=== PATIENT | female | born 1975 | race American Indian/Alaskan Native ===

== ENCOUNTER 2018-05-13 08:09 | Outpatient (CLI) | payer OTHER ==
--- NOTE | 2018-05-13 10:44 | Fluoroscopy Report ---
HYSTEROSALPINGOGRAM: History: Infertility, intramural leiomyoma of uterus. Informed consent was obtained. Standard sterile prep and drape was employed. The catheter tip was subsequently placed within the uterine lumen via cervix. The small balloon on the tip of the catheter was inflated. Retrograde injection opacifies normal appearing uterine lumen. 40 fluoroscopic images were saved. There is prompt filling of the fallopian tubes with prompt bilateral spillage. The uterine lumen demonstrates no evidence for extrinsic compression or intrinsic mass. IMPRESSION: Normal hysterosalpingogram.
== END 2018-05-13 08:10 | disposition home or self-care (01) ==
LOC: FLUORO 08:09
PROVIDERS: ATTEND Obstetrics & Gynecology
DX: D25.1 Intramural leiomyoma of uterus (principal); Z88.0 Allergy status to penicillin; Z88.1 Allergy status to other antibiotic agents
CPT/HCPCS: 58340; 74740; Q9967

== ENCOUNTER 2019-05-06 05:42 | Inpatient (IN) | payer MEDICAID ==
[2019-05-06] MEDS ORDERED: METOCLOPRAMIDE 10 MG/2 ML INJ IV ONE ×2 (06:07→09:00)
[2019-05-06] MEDS ORDERED: FAMOTIDINE 20 MG/2 ML INJ IV ONE ×3 (06:07→09:00)
[2019-05-06] MEDS ORDERED: BICITRA ORAL LIQD 30ML PO ONE ×2 (06:07→09:00)
[2019-05-06 06:44] LABS: Basophils % (Auto) 0.5 % (0.0-1.8); Eosinophils # (Auto) 0.1 K/mm3 (0.0-0.4); Eosinophils % (Auto) 1.5 % (0.0-4.3); Hematocrit 40.5 % (30.3-42.9); Lymphocytes # (Auto) 2.1 K/mm3 (1.2-5.4); Lymphocytes % (Auto) 21.3 % (13.4-35.0); Mean Corpuscular HGB Conc 35 % (30-34); Mean Corpuscular Volume 96 fl (79-97); Monocytes # (Auto) 0.9 K/mm3 (0.0-0.8); Monocytes % (Auto) 9.1 % (0.0-7.3); Platelet Count 290 K/mm3 (140-440); Red Cell Distribution Width 13.4 % (13.2-15.2)
--- NOTE | 2019-05-06 06:50 | Ultrasound Report ---
LIMITED TRANSABDOMINAL OB PELVIC ULTRASOUND INDICATION / CLINICAL INFORMATION: presentation. COMPARISON: None available. FINDINGS: There is a single intrauterine in a breech presentation. The heart rate is 148 bpm. Signer Name: Cody Salazar MD Signed: 05/06/2019 6:46 AM Workstation Name: [id number]
[2019-05-06] MEDS: LACTATED RINGERS 1,000 ML IV SCH ×2 (06:52→08:18)
[2019-05-06] MEDS ORDERED: NALOXONE 0.4 MG/1 ML INJ IV PRN ×2 (06:53→10:14)
[2019-05-06] MEDS ORDERED: PROMETHAZINE 25 MG TAB PO PRN (06:53)
[2019-05-06] MEDS ORDERED: ONDANSETRON 4 MG/2 ML INJ IV PRN (06:53)
[2019-05-06] MEDS ORDERED: PROMETHAZINE 25 MG RECT SUPP PR PRN (06:53)
[2019-05-06] MEDS ORDERED: HYDROmorphone 1 MG/1 ML INJ IV PRN ×2 (06:53)
--- NOTE | 2019-05-06 06:53 | Anesthesia Day of Surgery ---
Anesthesia Day of Surgery - Day of Surgery Patient Examined: Yes Patient H&P Reviewed: Yes Patient is NPO: Yes
--- NOTE | 2019-05-06 06:53 | Anesthesia Consultation ---
Anesthesia Consult and Med Hx Date of service: 05/06/19 - Airway Anesthetic Teeth Evaluation: Good ROM Head & Neck: Adequate Mental/Hyoid Distance: Adequate Mallampati Class: Class II Intubation Access Assessment: Good - Pulmonary Exam CTA: Yes - Cardiac Exam Cardiac Exam: RRR - Pre-Operative Health Status ASA Pre-Surgery Classification: ASA2 Proposed Anesthetic Plan: Spinal - Pulmonary Hx Asthma: No - Cardiovascular System Hx Hypertension: Yes (CHTN) - Central Nervous System Hx Seizures: No Hx Psychiatric Problems: No - Endocrine Hx Renal Disease: No Hx Hypothyroidism: No Hx Hyperthyroidism: No - Hematic Hx Anemia: No Hx Sickle Cell Disease: No - Other Systems Hx Alcohol Use: No
[2019-05-06] MEDS ORDERED: OXYTOCIN 20 UNIT/1000ML DRIP 20 UNITS/1,000 ML BAG IV SCH ×2 (07:00→11:00)
--- NOTE | 2019-05-06 07:01 | History and Physical Report ---
History of Present Illness Date of examination: 05/06/19 Date of admission: 05/06/19 05:42 Chief complaint: C Section History of present illness: Pt is a 43yo BF EDC 05/21/19; EGA 37 6/7 weeks presents for Primary C Section due to Breech presentation. She received care at [facility] since 8 weeks and co-managed by [facility] for AMA, uterine fibroids, Chronic hypertension and persistent Breech presentation. records are available and GBS is Negative. Past History Past Medical History: hypertension Past Surgical History: no surgical history [employer] History: fibroids Family/Genetic History: diabetes, hypertension, cancer Social history: no significant social history, single - Obstetrical History Expected Date of Delivery: 05/21/19 Actual Gestation: 37 Week(s) 6 Day(s) : 1 Medications and Allergies Allergies Allergy/AdvReac Type Severity Reaction Status Date / Time amoxicillin AdvReac Hives Unverified 05/13/18 08:18 erythromycin base AdvReac Nausea Unverified 05/13/18 08:19 Home Medications Medication Instructions Recorded Confirmed Last Taken Type Aspirin [Adult Aspirin] 1 tab PO DAILY 05/06/19 05/06/19 05/06/19 History hydroCHLOROthiazide [HCTZ] 1 tab PO DAILY 05/06/19 05/06/19 05/06/19 History Active Meds: Active Medications Oxytocin/Sodium Chloride (Pitocin/Ns 20 Unit/1000ml Drip) 20 units in 1,000 mls @ 0 mls/hr IV TITR LATOYA Lactated Ringer's (Lactated Ringers) 1,000 mls @ 2,250 mls/hr IV PREOP LATOYA Stop: 05/07/19 07:27 Last Admin: 05/06/19 06:52 Dose: 2,250 mls/hr Documented by: Naloxone HCl (Naloxone) 0.2 mg IV Q2MIN PRN PRN Reason: Res Rate </= 8 or 02 SAT < 92% Ondansetron HCl (Zofran) 4 mg IV Q8H PRN PRN Reason: Nausea And Vomiting Promethazine HCl (Phenergan) 25 mg PO Q6H PRN PRN Reason: Nausea And Vomiting Promethazine HCl (Phenergan) 25 mg NM Q6H PRN PRN Reason: Nausea And Vomiting Sodium Chloride (Sodium Chloride Flush Syringe 10 Ml) 10 ml IV PRN NR Review of Systems All systems: negative - Vital Signs Vital signs: Vital Signs Pulse BP 75 117/70 05/06/19 06:07 05/06/19 06:07 Temp Pulse Resp BP Pulse Ox 75 117/70 05/06/19 06:07 05/06/19 06:07 - Physical Exam Breasts: Positive: deferred Cardiovascular: Regular rate Lungs: Positive: Clear to auscultation Abdomen: Positive: normal appearance Genitourinary (Female): Positive: normal external genitalia Vagina: Positive: normal moisture Uterus: Positive: enlarged Extremities: Positive: normal - Obstetrical FHR: category 1 Uterine Contraction Monitor Mode: External Results Result Diagrams: 05/06/19 06:20 Abnormal lab results 05/06/19 Range/Units 06:20 MCH 33 H (28-32) pg MCHC 35 H (30-34) % [place] % (Auto) 9.1 H (0.0-7.3) % [place] # 0.9 H (0.0-0.8) K/mm3 All other labs normal. Assessment and Plan - Patient Problems (1) 38 weeks gestation of Onset Date: 05/06/19 Current Visit: Yes Status: Acute Plan to address problem: A: IUP @ 37 6/7 weeks Breech presentation Uterine fibroids Chronic hypertension P: Admit to L&D for Primary C Section (2) Uterine fibroids affecting in third trimester Onset Date: 05/06/19 Current Visit: Yes Status: Acute (3) Breech presentation Onset Date: 05/06/19 Current Visit: Yes Status: Acute Qualifiers: Fetus number: single or unspecified fetus Qualified Code(s): O32.1XX0 - Maternal care for breech presentation, not applicable or unspecified
[2019-05-06] MEDS ORDERED: METOCLOPRAMIDE 10 MG/2 ML INJ ONE (08:39)
[2019-05-06] MEDS ORDERED: GENTAMICIN/NS 80 MG/100 ML 100 ML IV ONE (09:00)
[2019-05-06] MEDS ORDERED: SODIUM CHLORIDE 0.9% IRR 1,500 ML BOTTLE IR ONE (09:10)
[2019-05-06] MEDS ORDERED: WATER FOR IRRIG STERILE 1,500 ML BOTTLE IR ONE (09:10)
[2019-05-06] MEDS ORDERED: DEXMEDETOMIDINE 200 MCG/2 ML VIAL IV ONE (09:56)
[2019-05-06] MEDS ORDERED: ONDANSETRON 4 MG/2 ML INJ ONE (09:56)
[2019-05-06] MEDS ORDERED: KETOROLAC 30 MG/1 ML INJ ONE (09:56)
--- NOTE | 2019-05-06 10:11 | Operative Report ---
Operative Report Operative Report: Date of procedure: 05/06/2019 Pre-operative diagnosis: 1. Intrauterine at 37 6/7 weeks 2. Breech presentation 3. Uterine fibroids 4. Chronic hypertension Post-operative diagnosis: Same Procedure name(s): Primary low transverse section Surgeon: Luis Carlos Lyon MD City Director: None Anesthesia: Spinal anesthesia by Frank Schulz CRNA EBL: 500 mL's Findings: A 2558 gm female Apgars 8 at 1 minute 9 at 5 minutes. Ubaldo breech presentation. Nuchal cord 1. Uterus with small fibroids. Normal tubes and ovaries bilaterally. Procedure: After the patient was prepped and draped in usual sterile fashion, and after satisfactory level of spinal anesthesia was obtained, the skin knife was used to make a transverse skin incision. The incision was incised down to layer of the fascia, which was nicked in the midline and extended laterally using the Bovie cautery. The rectus muscles were dissected off the rectus fascia both superiorly and inferiorly. The rectus bellies in the midline, and the peritoneum was entered under direct visualization. The pe ritoneal incision was extended superiorly and inferiorly. A bladder flap was created and the bladder blade was then placed. The uterus was scored in a curvilinear linear fashion, entered in the midline revealing clear amniotic fluid. The 's Ubaldo breech was delivered onto the surgical field, followed by the rest of the 's body, nuchal cord 1 easily reduced and the oropharynx and nasopharynx were bulb suctioned. The cord was doubly clamped and cut and the infant was handed to the awaiting respiratory team. Cord blood was then obtained. The placenta was manually removed from the uterus, and the uterus removed from its normal anatomical position. After gentle uterine lavage, the incision was inspected and found to be without extensions. It was then closed in 2 layers using 0 Vicryl suture in a running interlocking fashion, the second layer imbricating the first. After good hemostasis was achieved, copious amounts or irrigation was performed, and the gutters were suctioned free of blood and blood clots. The uterus, which had small fibroids was then returned to its normal anatomical position, and the peritoneum was re- approximated using 3-0 Vicryl suture in a running interlocking fashion, and then the rectus muscles were re-approximated using 3-0 Vicryl suture in a [id number] configuration. The fascia was then re-approximated using 0 Vicryl suture in running interlocking fashion. The subcutaneous layer was made hemostatic using Bovie cautery, and the skin edges re-approximated using 4-0 Vicryl suture in a sub-cuticular fashion. Patient tolerated the procedure well was transported to recovery in stable condition.
[2019-05-06] MEDS ORDERED: HYDROcodone/ACETAMINOPHEN 5-325 MG TAB PO PRN (10:14)
[2019-05-06] MEDS ORDERED: SENNOSIDES 8.6 MG TAB PO PRN (10:14)
[2019-05-06] MEDS ORDERED: ACETAMINOPHEN 325 MG TAB PO PRN (10:14)
[2019-05-06] MEDS ORDERED: LANOLIN/ZINC/DIMETHICONE (LANSINOH) 7 GM TP PRN (10:14)
[2019-05-06] MEDS ORDERED: MORPHINE 4 MG/1 ML INJ IV PRN (10:14)
[2019-05-06] MEDS ORDERED: oxyCODONE /ACETAMINOPHEN 5-325MG TAB PO PRN (10:14)
[2019-05-06] MEDS ORDERED: WITCH HAZEL/ GLYCERIN PAD TP PRN (10:14)
[2019-05-06] MEDS ORDERED: MAGNESIUM HYDROXIDE (MOM) ORAL LIQD UDC PO PRN (10:14)
--- NOTE | 2019-05-06 11:21 | Post Anesthesia Evaluation ---
- Post Anesthesia Evaluation Patient Participated: Yes Airway Patent: Yes Stable Respiratory Function: Yes Nausea/Vomiting: No Temp > 96.8F: Yes Pain Manageable: Yes Adequeate Hydration: Yes Anesthesia Complications: No Block Receding Appropriately: Yes Patient on Ventilator: No
[2019-05-06] MEDS ORDERED: TETANUS,DIPH,PERTUSS(ACELL) VACCINE 0.5 ML SYRINGE IM ONE (11:30)
[2019-05-06] MEDS: D5W/LACTATED RINGERS 1,000 ML IV SCH (12:24)
[2019-05-06] MEDS: KETOROLAC 30 MG/1 ML INJ IV PRN ×2 (15:55→23:46)
[2019-05-06] MEDS: CLINDAMYCIN 600 MG/50 mL 600 MG/50 ML BAG IV SCH (17:05)
[2019-05-06 23:38] LABS: Hematocrit 34.8 % (30.3-42.9); Hemoglobin 11.9 gm/dl (10.1-14.3)
[2019-05-06] MEDS: SIMETHICONE 80 MG CHEW TAB PO PRN (23:46)
[2019-05-07] MEDS: D5W/LACTATED RINGERS 1,000 ML IV SCH (02:08)
[2019-05-07] MEDS: CLINDAMYCIN 600 MG/50 mL 600 MG/50 ML BAG IV SCH (02:13)
[2019-05-07] MEDS: SIMETHICONE 80 MG CHEW TAB PO PRN (10:12)
[2019-05-07] MEDS: FERROUS SULFATE 325 MG TAB PO SCH (10:12)
[2019-05-07] MEDS: PRENATAL VIT27-FE FUMARATE-FOLIC ACID VIT TAB PO SCH (10:12)
[2019-05-07] MEDS ORDERED: MEASLES, MUMPS & RUBELLA 12,500 UNIT/0.5 ML VACCINE SUB-Q ONE (10:16)
[2019-05-07] MEDS: IBUPROFEN 800 MG TAB PO PRN ×3 (10:19→22:51)
--- NOTE | 2019-05-07 11:34 | Progress Note ---
Assessment and Plan - Patient Problems (1) 38 weeks gestation of Onset Date: 05/06/19 Current Visit: Yes Status: Resolved (2) Uterine fibroids affecting in third trimester Onset Date: 05/06/19 Current Visit: Yes Status: Chronic (3) Breech presentation Onset Date: 05/06/19 Current Visit: Yes Status: Resolved Qualifiers: Fetus number: single or unspecified fetus Qualified Code(s): O32.1XX0 - Maternal care for breech presentation, not applicable or unspecified (4) Status post Onset Date: 05/07/19 Current Visit: Yes Status: Resolved Plan to address problem: A: S/P Primary C Section - POD #1 Doing well Asymptomatic anemia - stable Chronic hypertension - stable P: Continue RPOC Anticipate discharge in 24-48hrs Subjective - Subjective Date of service: 05/07/19 Principal diagnosis: s/p Primary C Section - POD #1 Interval history: Pt is feeling well without complaints. Bleeding improved. She is tolerating a reg diet without nausea or vomiting, ambulating and voiding without difficulty. Patient reports: appetite normal, voiding normally, pain well controlled, flatus, ambulating normally, no dizzy ambulation [place]: doing well, nursing well, bottle feeding Objective - Vital Signs Latest vital signs: Vital Signs Temp Pulse Resp BP BP Pulse Ox 05/07/19 07:41 98.8 F 73 20 111/73 98 05/07/19 04:35 98.3 F 82 20 111/62 94 05/07/19 01:16 98.6 F 72 20 116/70 99 05/06/19 21:11 98.2 F 71 20 116/68 98 05/06/19 15:54 98.4 F 73 18 114/61 96 05/06/19 11:40 97.6 F 79 20 101/45 Intake and Output 05/06/19 05/07/19 05/07/19 22:59 06:59 14:59 Intake Total 1650 480 220 Output Total 1050 1800 300 Balance 600 -1320 -80 Intake: IV 1050 CLEOCIN 600 MG/50 mL 600 50 mg In 50 ml @ 100 mls/hr IV Q8H LATOYA Rx#:[id number] D5lr 1,000 ml @ 125 mls/ 1000 hr IV DIRECT LATOYA Rx#: [id number] Oral 240 480 220 Intake, Free Water 360 Output: Urine 1050 1800 300 Indwelling Catheter 1050 1400 Void 400 300 Other: Total, Intake Amount 240 240 220 Total, Output Amount 1050 400 300 # Voids Void 1 - Exam Breasts: Present: deferred Abdomen: Present: normal appearance, soft Uterus: Present: normal, firm, fundal height at umbilicus Extremities: Present: normal Incision: Present: normal, dry, intact, dressed - Labs Labs: Laboratory Tests 05/06/19 05/06/19 05/06/19 06:20 06:20 22:39 WBC 9.7 RBC 4.20 Hgb 14.0 11.9 Hct 40.5 34.8 MCV 96 MCH 33 H MCHC 35 H RDW 13.4 Plt Count 290 Lymph % (Auto) 21.3 [place] % (Auto) 9.1 H Eos % (Auto) 1.5 Baso % (Auto) 0.5 Lymph # 2.1 [place] # 0.9 H Eos # 0.1 Baso # 0.0 Seg Neutrophils % 67.6 Seg Neutrophils # 6.6 Blood Type B POSITIVE Antibody Screen Negative
[2019-05-07] MEDS: hydroCHLOROthiazide 12.5 MG CAP PO SCH (13:15)
[2019-05-08] MEDS: FERROUS SULFATE 325 MG TAB PO SCH (09:31)
[2019-05-08] MEDS: PRENATAL VIT27-FE FUMARATE-FOLIC ACID VIT TAB PO SCH (09:31)
[2019-05-08] MEDS: hydroCHLOROthiazide 12.5 MG CAP PO SCH (09:31)
[2019-05-08] MEDS: IBUPROFEN 800 MG TAB PO PRN (09:31)
--- NOTE | 2019-05-08 09:50 | Progress Note ---
Assessment and Plan - Patient Problems (1) 38 weeks gestation of Onset Date: 05/06/19 Current Visit: Yes Status: Resolved (2) Uterine fibroids affecting in third trimester Onset Date: 05/06/19 Current Visit: Yes Status: Chronic (3) Breech presentation Onset Date: 05/06/19 Current Visit: Yes Status: Resolved Qualifiers: Fetus number: single or unspecified fetus Qualified Code(s): O32.1XX0 - Maternal care for breech presentation, not applicable or unspecified (4) Status post Onset Date: 05/07/19 Current Visit: Yes Status: Resolved Plan to address problem: A: S/P Primary C Section - POD #2 Doing well Asymptomatic anemia - stable Chronic hypertension - stable P: May go home today Follow up in the office in 1 week for BP check Subjective - Subjective Date of service: 05/08/19 Principal diagnosis: s/p Primary C Section - POD #2 Interval history: Pt is feeling well without complaints. She is tolerating a reg diet without nausea or vomiting, ambulating and voiding without difficulty. Patient reports: appetite normal, voiding normally, pain well controlled, flatus, ambulating normally, no dizzy ambulation, no nauseated : doing well, nursing well Objective - Vital Signs Latest vital signs: Vital Signs Temp Pulse Resp BP BP Pulse Ox 05/08/19 07:47 98.4 F 65 18 115/66 97 05/08/19 00:54 98.4 F 71 20 115/70 97 05/07/19 15:42 98.4 F 75 20 104/61 96 Intake and Output 05/07/19 05/08/19 05/08/19 22:59 06:59 14:59 Intake Total 600 240 480 Balance 600 240 480 Intake: Oral 600 240 480 Other: Total, Intake Amount 120 240 480 # Voids Void 1 1 - Exam Breasts: Present: deferred Abdomen: Present: normal appearance, soft Uterus: Present: normal, firm, fundal height below umbilicus Extremities: Present: normal Incision: Present: normal, dry, intact
--- NOTE | 2019-05-08 13:07 | Discharge Summary ---
Providers - Providers Date of Admission: 05/06/19 05:42 Date of discharge: 05/08/19 Attending physician: KIM TAYLOR Primary care physician: KIM TAYLOR Hospitalization Reason for admission: IUP at term, other (Chronic hypertension; Breech presentation; Uterine fibroids) Delivery: Procedure: section, primary low transverse Episiotomy: none Laceration: none Incision: normal, dry, intact Other procedures: none complications: none Discharge diagnosis: IUP at term delivered baby: female Hospital course: Pt is a 43yo BF EDC 05/21/19; EGA 37 6/7 weeks who presented for a Primary C Section due to Breech presentation. She received care at [facility] since 8 weeks and co-managed by [facility] for AMA, uterine fibroids, Chronic hypertension and persistent Breech presentation. She underwent an uncomplicated Primary C Section, and by POD #2 she was tolerating a reg diet without nausea or vomiting, ambulating and voiding without difficulty. She was therefore discharged to home on POD #2 in stable condition. Condition at discharge: Good Disposition: DC-01 TO HOME OR SELFCARE - Discharge Diagnoses (1) 38 weeks gestation of Status: Resolved (2) Uterine fibroids affecting in third trimester Status: Chronic (3) Breech presentation Status: Resolved Qualifiers: Fetus number: single or unspecified fetus Qualified Code(s): O32.1XX0 - Maternal care for breech presentation, not applicable or unspecified (4) Status post Status: Resolved Plan - Discharge Medications Prescriptions: Ferrous Sulfate [Feosol 325 MG tab] 325 mg PO BID #60 tablet hydroCHLOROthiazide [HCTZ] 12.5 mg PO QDAY #30 capsule Ibuprofen [Motrin 800 MG tab] 800 mg PO Q6H PRN #30 tablet PRN Reason: Pain, Mild (1-3) HYDROcodone/APAP 5-325 [[place] 5-325 mg TAB] 1 each PO Q6HR PRN #30 tablet PRN Reason: Pain, Moderate (4-6) - Provider Discharge Summary Activity: routine, no sex for 6 weeks, no heavy lifting 4 weeks, no strenuous exercise Diet: routine Instructions: routine Additional instructions: [] Smoking cessation referral if applicable(refer to patient education folder for contact #) [] Refer to [facility] Booklet Call your doctor immediately for: * Fever > 100.5 * Heavy vaginal bleeding ( >1 pad per hour) * Severe persistent headache * Shortness of breath * Reddened, hot, painful area to leg or breast * Drainage or odor from incision. * Keep incision clean and dry at all times and follow doctor's instructions regarding bathing/showering Follow up in the office in 1 week for BP check - Follow up plan Follow up: KIM TAYLOR MD [Primary Care Provider] - 7 Days ROBERT RALPH CNM [Advanced Practice Nurse] - 7 Days
[2019-05-08 18:24] VITALS: BP 117/70
== END 2019-05-08 16:00 | disposition home or self-care (01) | DRG 765 ==
LOC: APU 05:42 → OB 11:55
PROVIDERS: ADMIT Obstetrics & Gynecology; ATTEND Obstetrics & Gynecology
PROC: 10D00Z1 Extraction of Products of Conception, Low, Open Approach (ICD-10-PCS; principal; 2019-05-06)
PROC: 3E0234Z Introduction of Serum, Toxoid and Vaccine into Muscle, Percutaneous Approach (ICD-10-PCS; 2019-05-07)
DX: O32.1XX0 Maternal care for breech presentation, not applicable or unspecified (principal); O10.92 Unspecified pre-existing hypertension complicating childbirth; O34.13 Maternal care for benign tumor of corpus uteri, third trimester; D25.9 Leiomyoma of uterus, unspecified; O16.4 Unspecified maternal hypertension, complicating childbirth; O69.81X0 Labor and delivery complicated by cord around neck, without compression, not applicable or unspecified; Z37.0 Single live birth; Z88.1 Allergy status to other antibiotic agents; O99.02 Anemia complicating childbirth; D64.9 Anemia, unspecified; Z3A.38 38 weeks gestation of pregnancy; Z23 Encounter for immunization
CPT/HCPCS: 36415; 76815; 85014; 85018; 85025; 86850; 86900; 86901; G0378; A6250; J1170; J1580; J1885; J2270; J2405; J2590; J2765; J3490; J7120; J7121

== ENCOUNTER 2020-11-14 13:09 | Outpatient (CLI) | payer OTHER ==
--- NOTE | 2020-11-14 16:22 | Mammography Report ---
DIGITAL SCREENING MAMMOGRAM WITH TOMOSYNTHESIS WITH CAD, 11/14/2020 CLINICAL INFORMATION / INDICATION: Screening TECHNIQUE: Digital bilateral 2D and 3D mammography with tomosynthesis was obtained in the craniocaud al and mediolateral oblique projections. Computer-Aided Detection (CAD) analysis was used for interp retation of this study. COMPARISON: 10/05/2019 FINDINGS: Breast Density: The breasts are heterogeneously dense, which may obscure small masses. No dominant mass, suspicious calcifications, or architectural distortion in either breast. IMPRESSION: No mammographic evidence of malignancy. Follow up recommendation: Routine yearly BI-RADS Category 2: Benign. A "normal" or negative report should not discourage follow up or biopsy of a clinically significant f inding. A written summary of these findings will be mailed to the patient. The patient will be entered into a mammography reporting system which will generate a reminder letter for the patient's next appointmen t at the appropriate interval. The [employer] recommends yearly mammograms starting at age 40 and continuing as l neyda as a woman is in good health. Breast MRI is recommended for women with an approximate 20-25% or greater lifetime risk of breast cancer, including women with a strong family history of breast or ova nalini cancer or who have been treated for Hodgkin's disease. Signer Name: Eric Ann MD Signed: 11/14/2020 4:18 PM Workstation Name: [id number]
== END 2020-11-14 13:10 | disposition home or self-care (01) ==
LOC: SPVWC 13:09
PROVIDERS: ATTEND Advanced Practice Midwife
DX: Z12.31 Encounter for screening mammogram for malignant neoplasm of breast (principal)
CPT/HCPCS: 77063; 77067